=== PATIENT | female | born 1965 | race American Indian/Alaskan Native ===

== ENCOUNTER 2017-06-15 05:58 | Day surgery (SDC) | payer OTHER ==
[2017-06-15] MEDS ORDERED: NACL BACTERIOSTATIC INFILTRATI ONE (06:37)
[2017-06-15] MEDS ORDERED: LACTATED RINGERS 1,000 ML IV SCH (07:00)
[2017-06-15] MEDS ORDERED: VERSED IV NR (07:00)
[2017-06-15] MEDS ORDERED: PEPCID PO NR (07:00)
[2017-06-15] MEDS ORDERED: NORCO 5/325 PO PRN (07:04)
[2017-06-15] MEDS ORDERED: ZOFRAN IV PRN (07:04)
--- NOTE | 2017-06-15 07:04 | Anesthesia Day of Surgery ---
Anesthesia Day of Surgery - Day of Surgery Patient Examined: Yes Patient H&P Reviewed: Yes Patient is NPO: Yes
--- NOTE | 2017-06-15 07:04 | Anesthesia Consultation ---
Anesthesia Consult and Med Hx Date of service: 06/15/17 - Airway Anesthetic Teeth Evaluation: Good, Dentures ROM Head & Neck: Adequate Mental/Hyoid Distance: Adequate Mallampati Class: Class II Intubation Access Assessment: Good - Pulmonary Exam CTA: Yes - Cardiac Exam Cardiac Exam: RRR Anesthetic Concerns: Full upper plate - Pre-Operative Health Status ASA Pre-Surgery Classification: ASA2 Proposed Anesthetic Plan: General - Pulmonary Hx Smoking: Yes (SMOKED FOR 10Y, QUIT 07/2016) - Cardiovascular System Hx Hypertension: Yes - Central Nervous System Hx Psychiatric Problems: No - Other Systems Hx Alcohol Use: Yes (OCCAS) Hx Substance Use: No Hx Cancer: No
[2017-06-15 07:21] LABS: Hematocrit 33.7 % (30.3-42.9); Hemoglobin 11.8 gm/dl (10.1-14.3)
[2017-06-15] MEDS ORDERED: XYLOCAINE MPF 2% ONE (07:32)
[2017-06-15] MEDS ORDERED: DILAUDID ONE (07:32)
[2017-06-15] MEDS ORDERED: DIPRIVAN 10 MG/ML IV ONE ×2 (07:33→08:31)
[2017-06-15] MEDS ORDERED: ZOFRAN ONE (08:24)
[2017-06-15] MEDS ORDERED: ANCEF ONE (08:33)
[2017-06-15] MEDS ORDERED: NACL 0.9% IR ONE (08:41)
[2017-06-15] MEDS ORDERED: DEMEROL ONE (09:17)
--- NOTE | 2017-06-15 09:17 | Operative Report ---
PREOPERATIVE DIAGNOSES: 1. 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 POSTOPERATIVE DIAGNOSES: 1. 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 PROCEDURE: Complex scar revision of bilateral breasts, 27 cm. SURGEON: Baldomero Mcmahon MD MEDICAL SOCIOLOGIST: Parker Morales CSA. DESCRIPTION OF PROCEDURE: The patient was brought to the operating room and placed on the table in supine position. Following administration of general anesthesia, bilateral breasts were prepped with a Betadine solution and draped in usual sterile manner. A #10 blade scalpel was used to circumferentially excise. Scars sent to pathology as specimen. Hemostasis controlled using electrocautery. Closure was performed in layers using interrupted and running subcuticular 2-0 Monocryl sutures. Mastisol, Steri-Strips, and sterile dressings applied. The patient tolerated the procedure well and returned to recovery room in stable condition. JOB# [id number] FTW/NTS
[2017-06-15] MEDS: MORPHINE IV PRN ×2 (09:50→10:00)
[2017-06-15] MEDS ORDERED: LOPRESSOR IV ONE (10:00)
[2017-06-15 10:56] VITALS: BP 150/90
--- NOTE | 2017-06-15 16:58 | Discharge Summary ---
Short Stay Discharge Plan Activity: no restrictions Weight Bearing Status: Full Weight Bearing Diet: regular Wound: remove dressing (72HRS) Special Instructions: other (RBEEZY Drain Care) Additional Instructions: FOLLOW SURGEON INSTRUCTION. CALL FOR F/U APPT. Follow up with: YASMIN CABRERA PA [Primary Care Provider] - 6 Weeks Forms: Outpatient Surgery DC Inst.
--- NOTE | 2017-06-15 17:00 | Short Stay Summary ---
Short Stay Documentation Date of service: 06/15/17 - Allergies and Medications Current Medications: Allergies No Known Allergies Allergy (Verified 06/12/17 13:58) Home Medications Medication Instructions Recorded Confirmed Last Taken Type amLODIPine 10 mg PO 06/15/17 06/15/17 04:30 History - Brief post op/procedure progress note Date of procedure: 06/15/17 Pre-op diagnosis: Cicatrix/ Acquired Deformity of Breast Post-op diagnosis: same Procedure: Complex Scar Revision of Tye. Breasts 27cm Anesthesia: GETA Surgeon: ARMINDA GALVEZ JR Estimated blood loss: minimal Specimen disposition: to lab Condition: stable - Disposition Condition at discharge: Good Disposition: DC-01 TO HOME OR SELFCARE Short Stay Discharge Plan Additional Instructions: FOLLOW SURGEON INSTRUCTION. CALL FOR F/U APPT. Follow up with: YASMIN CABRERA PA [Primary Care Provider] - 6 Weeks Forms: Outpatient Surgery DC Inst.
== END 2017-06-15 11:20 | disposition home or self-care (01) ==
LOC: OR 05:58
PROVIDERS: ATTEND Plastic Surgery
DX: L90.5 Scar conditions and fibrosis of skin (principal); M95.4 Acquired deformity of chest and rib; Z90.710 Acquired absence of both cervix and uterus; Z98.890 Other specified postprocedural states; Z87.891 Personal history of nicotine dependence; I10 Essential (primary) hypertension
CPT/HCPCS: 11406; 36415; 85014; 85018; 88305; J0690; J1170; J2175; J2250; J2270; J2405; J2704; J7120